=== PATIENT | male | born 1985 | race Caucasian/White ===

== ENCOUNTER 2019-12-08 10:49 | Emergency (ER) | payer OTHER, SELFPAY ==
--- NOTE | ~2019-12-08 | XR_ITS ---
EXAMINATION: XR chest 2V DATE: 12/08/2019 15:11 INDICATION: Hemoptysis. TECHNIQUE: Frontal and lateral views of the chest were obtained. COMPARISON: CT abdomen and pelvis 12/08/2019 FINDINGS: The chest demonstrates clear lungs without pneumonia, pleural effusion, or pneumothorax. Th e heart size is normal. IMPRESSION: 1. No acute cardiopulmonary disease. Reviewed, dictated and finalized at location A.
--- NOTE | ~2019-12-08 | CT_ITS ---
EXAMINATION: CT abdomen pelvis w con DATE: 12/08/2019 14:21 INDICATION: Abdominal pain. Hematemesis. TECHNIQUE: Computed tomography (CT) of the abdomen and pelvis was performed with 100 cc Omnipaque 350 intravenous contrast. The dose-length product was 813.84 mGy-cm. Automated exposure control and iter ative reconstruction technique were employed. COMPARISON: No prior studies for comparison. . FINDINGS: Lung bases are unremarkable. Heart size normal. No significant pleural or pericardial effus ion. No significant vascular abnormality. Small fat-containing umbilical hernia. There are multiple small subcentimeter hypodensities of the liver and kidneys, most likely benign cys ts. There is a 13 mm left renal cyst. Gallbladder is present. Bowel pattern is nonobstructive. Coloni c diverticulosis without evidence for diverticulitis. Normal appendix. No abnormal pelvic masses or f luid collections. No free air or free fluid.0 no acute osseous abnormality. IMPRESSION: 1. No acute abdominal abnormality. No findings to account for patient's symptoms. Reviewed, dictated and finalized at location A. IMPRESSION: 1. No acute abdominal abnormality. No findings to account for patient's symptom s.
[2019-12-08 10:57] VITALS: BP 144/107; PULSE 102; RESP 18; TEMP 36.2; O2SAT 99
[2019-12-08 11:12] LABS: Basophils Percent Auto 0.3 % (0.2-1.2); Eosinophils Percent Auto 0.1 % (0-4.4); Hematocrit 46.6 % (42.0-52.0); Hemoglobin 15.6 g/dL (14.0-18.0); Immature Granulocyte Absolute 0.03 K/mm3 (0.00-0.031); Immature Granulocyte Percent A 0.3 % (0-0.5); Lymphocytes Percent Auto 27.5 % (18.3-44.2); Mean Corpuscular HGB Conc 33.5 g/dl (32-36); Mean Corpuscular Hemoglobin 27.4 pg (26-34); Mean Corpuscular Volume 81.9 fl (80-100); Mean Platelet Volume 9.5 fl (7.4-10.4); Monocytes Absolute Auto 0.6 K/mm3 (0.1-0.6); Monocytes Percent Auto 5.5 % (2.6-8.5); Neutrophils Absolute Auto 6.8 K/mm3 (1.3-6.7); Neutrophils Percent Auto 66.3 % (45.5-73.1); Platelet Count Result 363 k/mm3 (150-375); Red Blood Count 5.69 M/mm3 (4.6-6.20); Red Cell Distribution Width 13.3 % (11.5-14.5); White Blood Count 10.2 K/mm3 (4.5-10.0)
[2019-12-08 11:22] LABS: Partial Thromboplastin Time 28.1 SECONDS (22.3-36.8)
[2019-12-08 11:24] LABS: Alanine Aminotransferase 21 U/L (4-50); Albumin Level 5.1 g/dL (3.5-5.1); Alkaline Phosphatase 92 U/L (38-126); Anion Gap 12 mmol/L (8-16); Aspartate Amino Transferase 30 U/L (17-59); Bilirubin,Total 0.7 mg/dL (0.2-1.3); Blood Urea Nitrogen 14 mg/dL (9-20); Calcium 9.6 mg/dL (8.4-10.2); Carbon Dioxide 24 mmol/L (22-30); Chloride 102 mmol/L (98-107); Estimated CRCL calculation 116 ml/min; Estimated Glomerular Filt Rate > 60; Glucose 88 mg/dL (75-110); Potassium 3.9 mmol/L (3.4-5.0); Sodium 138 mmol/L (137-145)
--- NOTE | 2019-12-08 13:31 | ED.GIBLEED ---
HPI - GI Bleed General Chief complaint: GI Bleed Stated complaint: vomiting old blood Time Seen by Provider: 12/08/19 13:31 Source: patient Mode of arrival: ambulatory Limitations: no limitations History of Present Illness HPI Narrative: Patient is a 34-year-old male who presents for evaluation of blood present in his vomit as well as abdominal pain. Patient reports he has been feeling unwell over the past 4 days, symptoms initially began on Friday into Friday morning, patient reports daily emesis with bright red blood and blood clot present. He denies any fever or chills. He reports associated left-sided upper abdominal pain which is sharp in nature without radiation to the chest, or back. No fever, cough or shortness of breath. No lightheadedness or dizziness. No dark or tarry stools. Patient states he feels nauseated, he denies any weakness. Related Data Allergies Allergy/AdvReac Type Severity Reaction Status Date / Time aspirin Allergy Unknown Verified 12/08/19 11:03 Review of Systems Review of Systems: Narrative: CONSTITUTIONAL: Denies fever, chills, or sweats. EYES: Denies visual changes ENT: Denies rhinorrhea, congestion CARDIOVASCULAR: Denies chest pain, palpitations, or edema. RESPIRATORY: Denies cough or dyspnea. GASTROINTESTINAL: Reports abdominal pain, nausea and vomiting GENITOURINARY: Denies dysuria or hematuria. SKIN: Denies rash or itching. MUSCULOSKELETAL: Denies back pain, joint pain, or myalgia. NEUROLOGIC: Denies headache, numbness, or weakness. [facility] Past Medical History Medical History (Updated 12/08/19 @ 15:23 by Enedelia Cano MD) No pertinent past medical history Surgical History Surgical History [place] teeth extracted Social History Social History (Updated 12/08/19 @ 13:50 by Enedelia Cano MD) Smoking status: Never smoker Alcohol intake: current Alcohol use details: Social, rarely Living arrangements: with family Gender identity (if verbalized by the patient): Male Exam Narrative: Exam Narrative: GENERAL: Awake, alert, conversant HEAD: Normocephalic, atraumatic. EYES: PERRLA and EOMI. ENT: Nares clear, no rhinorrhea or epistaxis. Mucous membranes moist. NECK: Supple. CHEST: No respiratory distress, breathing even and non labored HEART: Regular rate, sinus rhythm ABDOMEN:Non distended, mild left upper quadrant tenderness without rebound, rigidity or guarding : Rectum is normal without hemorrhoids or fissures. Guaiac negative. EXTREMITIES: Normal range of motion. No edema. SKIN: Warm, dry, no rash. NEURO:No focal deficits. Alert and oriented x3 Course Vital Signs Vital signs: Vital Signs Temperature 36.2 C L 12/08/19 10:57 Pulse Rate 102 H 12/08/19 10:57 Respiratory Rate 18 12/08/19 10:57 Blood Pressure 144/107 H 12/08/19 10:57 Pulse Oximetry 99 12/08/19 10:57 Temperature 36.2 C L 12/08/19 10:57 Pulse Rate 86 12/08/19 14:05 Respiratory Rate 18 12/08/19 10:57 Blood Pressure 142/97 H 12/08/19 14:05 Pulse Oximetry 99 12/08/19 10:57 MDM - GI Bleed MDM Narrative Medical decision making narrative: Patient presenting for evaluation of nausea and vomiting blood. Has had an assessment, ABCs are intact and vital signs are stable. Patient is very well-appearing. No pallor, tachycardia or evidence of gross GI hemorrhage. Guaiac Is negative. Laboratory results are reassuring. Patient is not anemic. No electrolyte derangement. Obtain imaging which is negative for any perforation, free air, less consistent with Boerhaave syndrome. Patient may have a small Veronica-Silva tear due to the vomiting. Patient has a normal neurological exam without weakness, lightheadedness, no neuro deficits thus a CT scan of the head was not obtained. I spoke with Dr. Gauthier regarding the patient's symptoms he has recommended omeprazole and close follow-up in his office. Patient then dis
[2019-12-08] MEDS: ONDANSETRON INJ 4 MG/2 ML VIAL IV PUSH (13:53)
[2019-12-08] MEDS: SODIUM CHLORIDE 0.9% IV 1,000 ML 999 ML IV CONT (13:54)
[2019-12-08 14:05] VITALS: BP 133/90; BP 137/90; BP 142/97; PULSE 68; PULSE 81; PULSE 86
--- NOTE | 2019-12-08 15:07 | PC.NURSE ---
Patient to CT via wheelchair.
[2019-12-08 15:41] LABS: INR 1.1; Prothrombin Time 13.7 Seconds (11.1-14.7)
[2019-12-08 15:42] LABS: Partial Thromboplastin Time 27.2 SECONDS (22.3-36.8)
--- NOTE | 2019-12-08 15:45 | PC.NURSE ---
pt only received 400 ml of ns prior to leaving the dept
== END 2019-12-08 15:46 | disposition home or self-care (01) ==
PROVIDERS: Emergency Provider Emergency Medicine
DX: K92.0 Hematemesis (principal)
CPT/HCPCS: 36415; 71046; 74177; 80053; 85025; 85610; 85730; 86850; 86900; 86901; 96361; 96365; 96375; 99284; J0131; J2405; J7030; Q9967